=== PATIENT | male | born 1940 | race Native Hawaiian/Other Pacific Islander ===

== ENCOUNTER 2020-03-28 13:58 | Inpatient (IN) | payer OTHER, SELFPAY ==
[~2020-03-28] VITALS: Ht 160 cm; Wt 52.6 kg
[2020-03-28 14:10] VITALS: BP 97/61
[2020-03-28] MEDS ORDERED: NACL 0.9% 1,000 ML IV SCH (14:10)
[2020-03-28] MEDS ORDERED: cefTRIAXone 1,000 MG in DEXT 5% MINI-BAG PLUS 50 ML IV ONE (14:10)
--- NOTE | 2020-03-28 14:15 | NUR ---
80/M C/O GEN WEAK/SYNCOPAL EPISODE TODAY FOUND BY FAMILY PER EMS. PT IS HARD OF HEARING. DIFFICULT TO OBTAIN HX. PT STATES HE WAS FEBRILE YESTERDAY, PRESENTS AFEBRILE AT ARRIVAL. STATES N/V X TODAY. NO N/V AT ARRIVAL. PRESENTS WITH [facility] 15. BORDERLINE HYPOTENSIVE, ARRIVES INFUSING 1L NS BY EMS. APPEARS NAD. CONNECTED TO BEDSIDE MONITOR. DENIES PAIN, CP, SOB. HX- HYPERCHOL
[2020-03-28] MEDS ORDERED: cefTRIAXone 1,000 MG VIAL ONE (14:19)
--- NOTE | 2020-03-28 14:20 | NUR ---
FLU AND COVID SWABS OBTAINED AT THIS TIME
[2020-03-28 14:27] LABS: BASOPHILS % (AUTO) 0.2 % (0.0-2.0); EOSINOPHILS % (AUTO) 0.3 % (0.0-4.0); HEMATOCRIT 37.2 % (36-52); HEMOGLOBIN 12.5 g/dL (12.0-18.0); LYMPHOCYTES # (AUTO) 1.4 K/uL (2.0-11.5); LYMPHOCYTES % (AUTO) 20.5 % (20.5-51.1); MEAN CORPUSCULAR HEMOGLOBIN 30 pg (27-31); MEAN CORPUSCULAR HGB CONC 34 g/dL (33-37); MEAN CORPUSCULAR VOLUME 88.2 fL (80-94); MONOCYTES # (AUTO) 0.6 K/uL (0.8-1.0); MONOCYTES % (AUTO) 8.1 % (1.7-9.3); NEUTROPHILS # (AUTO) 4.9 K/uL (1.8-7.7); NEUTROPHILS % (AUTO) 70.9 % (42.2-75.2); PLATELET COUNT (AUTO) 152 K/uL (140-450); RED BLOOD CELL COUNT(AUTO) 4.22 MIL/uL (4.20-6.10); RED CELL DISTRIBUTION WIDTH 12.8 % (11.6-13.7); WHITE BLOOD COUNT (AUTO) 6.9 K/uL (4.8-10.8)
[2020-03-28 14:41] LABS: ALBUMIN 3.3 g/dL (3.4-5.0); ASPARTATE AMINOTRANSFERASE 10 U/L (15-37); CARBON DIOXIDE 25.5 mmol/L (21-32); CHLORIDE 97 mmol/L (98-107); CREATININE 1.5 mg/dL (0.6-1.3); GLUCOSE 94 mg/dL (74-106); POTASSIUM 4.5 mmol/L (3.5-5.1); SODIUM SERUM 129 mmol/L (136-145); TOTAL BILIRUBIN 1.1 mg/dL (0.0-1.0); UREA NITROGEN, BLOOD 17 mg/dL (7-18)
--- NOTE | 2020-03-28 14:44 | NUR ---
PT GIVEN URINAL, STATES UNABLE TO VOID RIGHT NOW, WILL TRY LATER.
--- NOTE | 2020-03-28 14:48 | NUR ---
XRAY AT BEDSIDE
--- NOTE | 2020-03-28 15:09 | NUR ---
PT CONTINUES TO STATE HE IS UNABLE TO VOID AT THIS TIME
--- NOTE | 2020-03-28 15:48 | NUR ---
Dr. Arellano is evaluating the patient at bedside.
--- NOTE | 2020-03-28 15:50 | NUR ---
DR. ADAMS EVALUATING PT AT BEDSIDE
--- NOTE | 2020-03-28 15:51 | NUR ---
URINE SAMPLE HANDED TO RN OR LVN
[2020-03-28 15:57] LABS: APPEARANCE,URINE CLEAR (CLEAR); BILIRUBIN,URINE NEGATIVE (NEGATIVE); BLOOD, URINE NEGATIVE (NEGATIVE); COLOR,URINE YELLOW (YELLOW); LEUKOCYTE ESTERASE ,URINE NEGATIVE (NEGATIVE); NITRITE, URINE NEGATIVE (NEGATIVE); PH,URINE 6.5 (5.0-9.0); UGLUCOSE NEGATIVE (NEGATIVE)
--- NOTE | 2020-03-28 16:37 | NUR ---
DR. DE LA CRUZ EVALUATING PT AT BEDSIDE
--- NOTE | 2020-03-28 16:38 | NUR ---
Dr. Dinh is evaluating the patient at bedside.
[2020-03-28] MEDS ORDERED: LORazepam 2 MG/ML VIAL IVP PRN (16:45)
[2020-03-28] MEDS ORDERED: CLONIDINE HYDROCHLORIDE 0.1 MG TAB PO PRN (16:45)
[2020-03-28] MEDS ORDERED: HYDROcodone/APAP 5/325 MG 1 TAB TAB PO PRN ×2 (16:45)
[2020-03-28] MEDS ORDERED: diphenhydrAMINE 50 MG/ML VIAL IVP PRN (16:45)
[2020-03-28] MEDS ORDERED: IPRATROPIUM 0.02% 0.5 MG/2.5 ML NEBU INH PRN (16:45)
[2020-03-28] MEDS ORDERED: DOCUSATE SODIUM 250 MG GELCAP PO PRN (16:45)
[2020-03-28] MEDS ORDERED: ACETAMINOPHEN 650 MG SUPP RC PRN (16:45)
[2020-03-28] MEDS ORDERED: ALUMINUM HYD/MAG/SIMETHICONE 30 ML UDC PO PRN (16:45)
[2020-03-28] MEDS ORDERED: guaiFENesin DM 200/20 MG-10 ML 10 ML UDC PO PRN (16:45)
[2020-03-28] MEDS ORDERED: ONDANSETRON 4 MG/2 ML VIAL IVP PRN (16:45)
[2020-03-28] MEDS ORDERED: MORPHINE SULFATE 2 MG/ML SYR IVP PRN (16:45)
[2020-03-28] MEDS ORDERED: POTASSIUM CHLORIDE 10 MEQ TABER PO PRN (16:45)
[2020-03-28] MEDS ORDERED: SODIUM PHOSPHATE 118 ML ENEM RC PRN (16:45)
[2020-03-28] MEDS ORDERED: ALBUTEROL 0.083% 2.5 MG/3 ML NEBU INH PRN (16:45)
[2020-03-28] MEDS ORDERED: ACETAMINOPHEN 325 MG TAB PO PRN (16:45)
[2020-03-28] MEDS ORDERED: MAG SULF 2000 MG/WATER PREMIX 50 ML IV PRN (16:45)
[2020-03-28] MEDS ORDERED: ZOLPIDEM 5 MG TAB PO PRN (16:45)
[2020-03-28] MEDS ORDERED: bisacodyL 10 MG SUPP RC PRN (16:45)
[2020-03-28] MEDS ORDERED: MAGNESIUM OXIDE 400 MG TAB PO PRN (16:45)
--- NOTE | 2020-03-28 17:12 | NUR ---
S/W STUDENT SUPPORT ADVISOR WHO STATES FLU AND COVID SWABS ARE IN LAB. LAB TO PROCESS FLU RESULTS NOW.
[2020-03-28] MEDS: NACL 0.9% 1,000 ML IV SCH (17:13)
[2020-03-28 17:25] LABS: FREE T4 (FREE THYROXINE) 1.36 ng/dL (0.76-1.46); THYROID STIMULATING HORMONE 0.48 uIU/mL (0.34-3.74)
[2020-03-28] MEDS ORDERED: CHOL200035 PO (18:03)
[2020-03-28] MEDS ORDERED: LEVO0.0512 PO (18:03)
[2020-03-28] MEDS ORDERED: MONT10TA35 PO (18:03)
[2020-03-28] MEDS ORDERED: SIMV10TA1 PO (18:03)
--- NOTE | 2020-03-28 19:00 | NUR ---
Patient will be admitted to care of Dr. Dinh. Admited to TELE. Will go to room 106B. Belongings list completed. Report to SHARON Tucker.
--- NOTE | 2020-03-28 19:27 | NUR ---
GAVE REPORT TO SCALE AGENT RN FOR CONTINUITY OF CARE. PT IN STABLE CONDITION AT THIS TIME.
--- NOTE | 2020-03-28 19:28 | NUR ---
RECEIVED PATIENT IN STABLE CONDITION FROM AM SHIFT NURSE FOR CONTINUITY OF CARE. TELE PATIENT. RESPIRATIONS EVEN, UNLABORED. SKIN WARM, DRY, INTACT. SKIN ASSESSMENT COMPLETED. IV SITE TO RIGHT AC 20G PATENT/INTACT, INFUSING FLUIDS WELL. SALINE LOCK TO LEFT AC 20G PATENT/INTACT. ABDOMEN SOFT, NONTENDER, NONDISTENDED. NO N/V NOTED. PATIENT IS CONTINENT OF B/B. AMBULATES WELL. MRSA SCREEN COMPLETED. ORIENTED TO ROOM/STAFF/CALL LIGHT. PLAN OF CARE DISCUSSED WITH PATIENT. CALL LIGHT WITHIN REACH. ISOLATION PRECAUTIONS OBSERVED BY ALL STAFF. SAFETY PRECAUTIONS IN PLACE.
[2020-03-28 20:00] VITALS: BP 115/60
--- NOTE | 2020-03-28 21:08 | NUR ---
PATIENT'S FAMILY BROUGHT EYEGLASSES, CELL PHONE WITH CHARGING, HEARING AIDS AND VEGETARIAN DINNER FOR PATIENT.
--- NOTE | 2020-03-28 23:21 | NUR ---
PATIENT IS RESTING COMFORTABLY IN BED. NO C/O PAIN. NO S/S ACUTE DISTRESS. CALL LIGHT WITHIN REACH. SAFETY PRECAUTIONS IN PLACE. ISOLATION PRECAUTIONS OBSERVED BY ALL STAFF.
[2020-03-29] VITALS: BP 101/59
--- NOTE | 2020-03-29 01:25 | NUR ---
PATIENT AWAKE AND AMBULATING INSIDE OF ROOM. NO EPISODES OF SYNCOPE. NO S/S ACUTE DISTRESS. NO C/O PAIN. CALL LIGHT WITHIN REACH. SAFETY PRECAUTIONS IN PLACE. ISOLATION PRECAUTIONS OBSERVED BY ALL STAFF.
--- NOTE | 2020-03-29 03:16 | NUR ---
MADE ROUNDS. PATIENT CONTINUES IN STABLE CONDITION. NO C/O PAIN. NO S/S ACUTE DISTRESS. CALL LIGHT WITHIN REACH. SAFETY PRECAUTIONS IN PLACE. ISOLATION PRECAUTIONS OBSERVED BY ALL STAFF.
[2020-03-29 04:00] VITALS: BP 101/62
[2020-03-29] MEDS: NACL 0.9% 1,000 ML IV SCH (05:20)
--- NOTE | 2020-03-29 05:30 | NUR ---
PATIENT IS AWAKE AND IN STABLE CONDITION. NO C/O PAIN. NO S/S ACUTE DISTRESS. CALL LIGHT WITHIN REACH. ISOLATION PRECAUTIONS OBSERVED BY ALL STAFF. SAFETY PRECAUTIONS IN PLACE.
--- NOTE | 2020-03-29 06:31 | NUR ---
FNS consult received on 03/29/20 for [no reason given]. Consult reason does not meet high risk criteria per hospital policy. Patient will be seen and assessed according to the nutrition care policy. Shama Nettles MS, RDN
--- NOTE | 2020-03-29 06:32 | NUR ---
PATIENT HAS BEEN SCREENED AND CATEGORIZED MODERATE NUTRITION RISK. PATIENT WILL BE SEEN WITHIN 3-5 DAYS OF ADMISSION. 04/01/20-04/03/20 KARSON VELA MS, RDN
--- NOTE | 2020-03-29 07:19 | NUR ---
ENDORSED PATIENT IN STABLE CONDITION TO AM SHIFT NURSE FOR CONTINUITY OF CARE.
--- NOTE | 2020-03-29 07:20 | NUR ---
Received report from pm nurse. Pt resting in bed, awake, verbally responsive, respirations even & nonlabored in room air. Right AC IV 20G intact with ongoing NS @ 80ml/hr. Left AC IV 20G saline locked, intact & asymptomatic.
[2020-03-29 08:00] VITALS: BP 92/56
[2020-03-29 11:21] LABS: ANION GAP 13.8 (8-16); CARBON DIOXIDE 22.6 mmol/L (21-32); CHLORIDE 105 mmol/L (98-107); CREATININE 1.3 mg/dL (0.6-1.3); GLUCOSE 85 mg/dL (74-106); POTASSIUM 4.4 mmol/L (3.5-5.1); SODIUM SERUM 137 mmol/L (136-145); UREA NITROGEN, BLOOD 15 mg/dL (7-18)
[2020-03-29 12:00] VITALS: BP 94/54
--- NOTE | 2020-03-29 12:47 | NUR ---
Verbal and written discharge instructions provided to patient and son Corrina (on speakerphone). Informed of COVID-19 test pending and to continue to wear mask at all times, self-isolate @ home, and avoid contact until results are available. Patient and son verbalized understanding of teachings provided. Son to pick-up patient in 30min to 1hr. Right AC and Left AC IV removed, cannula intact, sites with min bleeding covered with dry gauze and tape.
--- NOTE | 2020-03-29 13:40 | NUR ---
Patient ambulated off unit at this time, no signs of distress. Son waiting in lobby with private transport. All belongings with patient upon departure.
== END 2020-03-29 13:40 | disposition home or self-care (01) | DRG 249 ==
LOC: MED 13:58 → MTU 16:27
PROVIDERS: ADMIT Internal Medicine Pulmonary Disease; ATTEND Internal Medicine Pulmonary Disease
DX: E86.0 Dehydration (principal); K52.9 Noninfective gastroenteritis and colitis, unspecified; E03.9 Hypothyroidism, unspecified; E78.00 Pure hypercholesterolemia, unspecified; E87.1 Hypo-osmolality and hyponatremia; R55 Syncope and collapse; Z20.828 Contact with and (suspected) exposure to other viral communicable diseases
CPT/HCPCS: 36415; 71045; 80048; 80053; 81003; 83605; 83735; 83880; 84439; 84443; 84484; 85025; 87040; 87081; 87086; 87804; 93005; 96365; 99285; C1758; J0696; J7030; J7060; Q0092; U0003-CS